=== PATIENT | male | born 1965 | race African-American/Black ===

== ENCOUNTER → 2023-09-30 | Day surgery (SDC) | payer MEDICAID ==
[~2023-09-30] VITALS: Ht 165.1 cm; Wt 79.8 kg
[~2023-09-30] MED LIST: ATEN-42 PO; ATOR10TA69 PO; BRIM10DR2 EACHEYE; ESMOLOL HCL 10MG/ML 10ML VIAL IV ONE; FENTANYL CITRATE/PF 50MCG/ML 2ML VIAL ONE; GLYCOPYRROLATE 0.2 MG/ML 2ML VIAL ONE; KETOROLAC 30MG/ML VIAL ONE; LACTATED RINGERS 1,000 ML IV SCH; LATA2.5D14 EACHEYE; MIDAZOLAM HCL 2 MG/2 ML VIAL ONE; ONDANSETRON HCL 4MG/2ML INJ ONE
== END | disposition home or self-care (01) ==
LOC: OR 08:30
PROVIDERS: ATTEND Ophthalmology
DX: H40.89 Other specified glaucoma (principal); I10 Essential (primary) hypertension; E78.5 Hyperlipidemia, unspecified; Z79.899 Other long term (current) drug therapy; Z98.890 Other specified postprocedural states
CPT/HCPCS: 66170; J3010; J3490 ×2; J1885; J2250; J2405